=== PATIENT | male | born 1965 | race Caucasian/White ===

== ENCOUNTER 2022-02-10 13:08 | Emergency (ER) | payer OTHER, BC, SELFPAY ==
[2022-02-10 13:09] VITALS: BP 164/102; PULSE 67; RESP 14; TEMP 36.8; O2SAT 99; BMI 26.4
--- NOTE | 2022-02-10 13:31 | CT_ITS ---
STUDY: CT ABDOMEN AND PELVIS WITH CONTRAST REASON FOR EXAM: Male, 57 years old. abdominal pain RADIATION DOSAGE (If Supplied By Facility): CTDIvol = ( 17.60 ) mGy, DLP = ( 988.24 ) mGycm TECHNIQUE: Transaxial images were obtained from the dome of the diaphragm to the symphysis pubis without oral contrast. IV 100mL Isovue-300 was administered. Sagittal and coronal images were reconstructed. Individualized dose optimization techniques were used for this CT. COMPARISON: None. FINDINGS: The visualized lung bases are unremarkable. The visualized portions of the heart are within normal limits. Normal liver. Normal gallbladder and extrahepatic biliary system. Normal spleen. Normal pancreas. Normal bilateral adrenal glands. Normal right kidney. Normal left kidney. Normal visualized stomach. Normal small intestine. Normal colon. The appendix is visualized and appears normal. Normal abdominal aorta. Normal inferior vena cava. Normal retroperitoneum. Normal urinary bladder. Small left inguinal hernia with an incarcerated loop of sigmoid colon but without bowel obstruction. Mild levoscoliosis of the lumbar spine with degenerative disc disease. CT/Abdomen/Pelvis W IV Cont ONLY IMPRESSION: Small left inguinal hernia with incarcerated loop of sigmoid colon but without bowel obstruction. Electronically Signed: Yadiel Avilez MD at 15:31 EDT ,
--- NOTE | 2022-02-10 13:32 | EX.ED.DYSGE1 ---
HPI History of Present Illness Chief Complaint: Abd Pain Informant: patient Narrative Narrative: 57-year-old male presenting to the emergency department with left periumbilical abdominal pain. Patient states that he developed this discomfort yesterday morning. It has gotten worse throughout the night. He did not eat and drink anything today. He denies any nausea vomiting urinary or bowel changes. No reported fevers. Is never had this pain before. No personal history of colitis or diverticulosis. He notes a chronic inguinal hernia on the left for greater than 10 years. He recently started working out doing sit ups and push-ups and wonders if this could be muscular [facility] Medical History (Updated 02/10/22 @ 15:[address] Arnulfo Sandra DO) Dyslipidemia Hypertension Home Medications atorvastatin [Lipitor] 40 mg PO QHS 02/10/22 [History Last Taken Unknown] lisinopril 10 mg PO DAILY 02/10/22 [History Last Taken Unknown] Allergy/AdvReac Type Severity Reaction Status Date / Time No Known Allergies Allergy Verified 02/10/22 13:11 Social History (Updated 02/10/22 @ 13:[address] Arnulfo Sandra DO) current gender identity: male Smoking Status: Former smoker ROS ROS ED Constitutional Constitutional ED: Denies chills, fever(s) or weight loss Eyes Eyes: Denies change in vision or diplopia ENT ENT ED: Denies ear pain, rhinorrhea or sore throat Cardiovascular Cardiovascular: Denies chest pain, orthopnea, palpitations or racing heartbeat Respiratory/Chest Respiratory/Chest: Denies cough, dyspnea or orthopnea Gastrointestinal Gastrointestinal: Reports abdominal pain; Denies constipation, diarrhea, nausea or vomiting Genitourinary Genitourinary ED: Denies dysuria, hematuria or urinary frequency Musculoskeletal Musculoskeletal: Denies arthralgias or myalgias Integumentary Denies abscess or rash Neurologic Neurologic: Denies headache(s) or weakness Psychiatric Psychiatric: Denies anxiety, depression, suicidal ideation or suicidal thoughts Endocrine Endocrinology: Denies polydipsia, polyphagia or polyuria Allergic/Immunologic Allergic/Immunologic ED: Denies mouth swelling, tongue swelling or urticaria EXAM Physical Exam Const Vital Signs: 02/10/22 13:09 Temperature 98.2 F Temperature Source Temporal Pulse Rate 67 Respiratory Rate 14 Blood Pressure 164/102 H Blood Pressure Mean 122 Pulse Ox 99 Oxygen Delivery Method Room Air Positive well nourished and well developed General Appearance ED: well developed HEENT Reports normocephalic, head/scalp atraumatic, TM's clear and moist mucous membranes Negative for trauma Tympanic Membrane ED: Yes TM's clear Eyes PERRL and EOMs intact bilaterally Neck no lymphadenopathy, supple and no JVD Resp normal respiratory effort and clear to auscultation bilaterally Cardio regular rate, regular rhythm and no murmurs GI GI Narrative: There is a left inguinal hernia that is not tender or swollen. Palpation: soft and tender; Negative for guarding or rebound tenderness present Back/Spine no CVA tenderness and normal ROM Extremity normal to inspection General Extremety ED: Negative for edema General Extremity: Negative for edema Neuro oriented x3 and CN's II-XII intact bilaterally Sensorium / Orientation: alert Motor Exam: strength 5/5 throughout Psych mental status grossly normal Mood & Affect: Negative for depressed or tearful Skin no rashes or lesions noted and no wounds MDM MDM MDM Narrative Medical decision making narrative: Is a blood work showed a white count of 5.4. CMP was normal. Urinalysis normal. CT of the abdomen pelvis is consistent with a left inguinal hernia with a loop of sigmoid colon in it. This area is not tender or swollen or red. The area on the patient that is causing pain is cephalad to this and more of the left upper quadrant. At this point I have a clear etiology for the patient's pain. I do not think he needs an emergent inguinal surgery. I will refer him to general surgery. And encouraged him to repeat an examination in 24 hours if he still is having discomfort. Lab Data Attestation: I reviewed the patient's lab results. Labs: Laboratory Results - last 24 hr 02/10/22 02/10/22 02/10/22 13:45 13:45 14:55 WBC 5.4 RBC 4.32 L Hgb 13.7 Hct 39.2 L MCV 90.7 MCH 31.7 MCHC 34.9 RDW Std Deviation 40.7 RDW Coeff of Prieto 12.2 Plt Count 234 MPV 9.5 Immature Gran % (Auto) 0.200 Neut % (Auto) 61.8 Lymph % (Auto) 26.4 Stewart % (Auto) 9.4 Eos % (Auto) 1.8 Baso % (Auto) 0.4 Absolute Neuts (auto) 3.3 Absolute Lymphs (auto) 1.43 Nucleated RBC % 0 Sodium 140 Potassium 4.0 Chloride 107 Carbon Dioxide 28.0 Anion Gap 5 BUN 13 Creatinine 0.77 Estim Creat Clear Calc 111.37 Est GFR (MDRD) Af Amer 133 Est GFR (MDRD) Non-Af 110 BUN/Creatinine Ratio 16.8 Glucose 94 Calcium 8.8 Total Bilirubin 0.50 AST 13 L ALT 32 Alkaline Phosphatase 89 Total Protein 7.2 Albumin 3.8 Globulin 3.4 Albumin/Globulin Ratio 1.1 Urine Color Yellow Urine Clarity Clear Urine pH 6.5 Ur Specific [place] 1.010 Urine Protein Negative Urine Glucose (UA) Normal Urine Ketones Negative Urine Occult Blood 10 H Urine Nitrite Negative Urine Bilirubin Negative Urine Urobilinogen Normal Ur Leukocyte Esterase Negative Urine RBC 0 SEEN Urine WBC 0 SEEN Ur Squamous Epith Cells 0 SEEN Urine Bacteria 0 SEEN Urine Mucus 0 SEEN Radiography Diagnostic Testing: Clinical Impression(s) from Imaging Studies Abdomen/Pelvis CT 02/10/22 13:31 IMPRESSION: Small left inguinal hernia with incarcerated loop of sigmoid colon but without bowel obstruction. Electronically Signed: Yadiel Avilez MD at 15:31 EDT , Discharge Plan Triage Chief Complaint: Abd Pain ED Provider: Arnulfo Sandra Dx/Rx/DC Orders Clinical Impression: Abdominal pain, Inguinal hernia Instructions: What Is a Hernia?, ED Abdominal Pain Unkn Cause Male... Prescriptions: No Action atorvastatin [Lipitor] 40 mg Tablet 40 mg PO QHS RF: 0 lisinopril 10 mg Tablet 10 mg PO DAILY RF: 0 Primary Care Provider: Care Physician,No Primary Referrals: Arnulfo Thomas MD [STAFF PHYSICIAN] - As soon as possible (for surgery) Care Physician,No Primary [Primary Care Provider] - Disposition Disposition: Home, Self Care
[2022-02-10 13:55] LABS: Absolute Lymphocyte Count 1.43 X10^3/uL (0.83-4.51); Absolute Neutrophil Count 3.3 X10^3/uL (2.0-7.7); Basophil# 0.02 X10^3/uL; Basophil% 0.4 % (0-1); Eosinophils% 1.8 % (0-5); Hematocrit 39.2 % (40-54); Hemoglobin 13.7 g/dL (13.0-16.5); Lymphocyte # 1.43 X10^3/ul (0.83-4.51); Lymphocyte % 26.4 % (19-41); Mean Corp Hgb Conc 34.9 g/dL (32-36); Mean Corpuscular Hgb 31.7 pg (27.0-32.0); Mean Corpuscular Volume 90.7 fL (80-94); Mean Platelet Vol. 9.5 fl (6.2-12.0); Monocyte# 0.51 X10^3/uL; Monocyte% 9.4 % (0-10); NRBC Flagged by Analyzer 0 % (0-5); Neutrophil # 3.34 X10^3/uL (2.7-7.7); Neutrophil % 61.8 % (47-70); Platelet Count 234 K/mm3 (150-450); RBC Distribution Width CV 12.2 % (11.6-14.6); RBC Distribution Width SD 40.7 fl (35.1-43.9); Red Blood Count 4.32 M/mm3 (4.6-6.2); White Blood Count 5.4 K/mm3 (4.4-11.0)
[2022-02-10 14:11] LABS: ALB/GLOB Ratio 1.1 RATIO (0.9-2.4); AST(SGOT) 13 U/L (15-37); Alanine Aminotransfer ALT/SGPT 32 U/L (16-61); Albumin, Serum 3.8 g/dL (3.2-5.0); Alkaline Phosphatase 89 U/L (45-117); Anion Gap 5 (5-15); BUN 13 mg/dL (7-18); BUN/Creat Ratio 16.8 RATIO (10-20); Calcium,Total 8.8 mg/dL (8.5-10.1); Chloride 107 mmol/L (98-107); Creatinine, Serum 0.77 mg/dL (0.70-1.30); EST Glomerular Filtration Rate 110 mL/min (>60); Est Glom Filt Rate - Afr Amer 133 mL/min (>60); Estimated Creatinine Clearance 111.37 ml/min; Globulin 3.4 g/dL (2.2-4.2); Glucose 94 mg/dL (74-106); Protein, Total 7.2 g/dL (6.4-8.2); Sodium Level 140 mmol/L (136-145)
[2022-02-10 15:00] LABS: Bacteria 0 SEEN /hpf (None Seen); Mucous, Urine 0 SEEN /hpf (<or=2+); Red Blood Cells-Urine 0 SEEN /hpf (0-5); Squamous Epithelial Cells - UA 0 SEEN /hpf (0-5); White Blood Cells 0 SEEN /hpf (0-5)
[2022-02-10 15:12] LABS: Color, Urine Yellow (Yellow); Glucose, Dipstick Normal (Normal); Ketone-Dipstick Negative (Negative); Leukocyte Esterase-Dipstick Negative /ul (Negative); Nitrite-Dipstick Negative (Negative); Occult Blood-Urine 10 /ul (Negative); Protein-Dipstick Negative (Negative); Urine Bilirubin Dipstick Negative (Negative); Urine Clarity Clear (Clear); Urine Urobilinogen Normal (Normal); Urine pH 6.5 (5.0 - 8.0)
== END 2022-02-10 15:57 | disposition home or self-care (01) ==
PROVIDERS: Emergency Provider Emergency Medicine; Visit Provider Emergency Medicine
DX: K40.90 Unilateral inguinal hernia, without obstruction or gangrene, not specified as recurrent (principal); I10 Essential (primary) hypertension; E78.5 Hyperlipidemia, unspecified; Z87.891 Personal history of nicotine dependence; Z79.899 Other long term (current) drug therapy
CPT/HCPCS: 74177; 80053; 81001; 85025; 99283; Q9967; A4216

== ENCOUNTER 2022-03-08 10:26 | Day surgery (SDC) | payer BC, SELFPAY ==
--- NOTE | 2022-03-04 09:08 | EKG12_ITS ---
Test Reason : PREOP Blood Pressure : / mmHG Vent. Rate : 064 BPM Atrial Rate : 064 BPM P-R Int : 154 ms QRS Dur : 094 ms QT Int : 394 ms P-R-T Axes : 049 021 036 degrees QTc Int : 406 ms Normal sinus rhythm Normal ECG Confirmed by OMAIRA VALENTINE, RUI ([id number]), photo editor ANILA RAMIREZ ([id number]) on 03/04/2022 12:56:44 PM Referred By: Arnulfo Thomas Confirmed By:RUI CASTANO MD
[2022-03-08] VITALS (7 sets, daily range): BP systolic 103–133; BP diastolic 62–77; PULSE 63–75; RESP 16; TEMP 36.3–36.6; O2SAT 93–100; BMI 26.2
[2022-03-08] MEDS: Lactated Ringers 1,000 ML 15 ML IV ×2 (11:05→14:00)
[2022-03-08] MEDS: Cefazolin 2 GM in 0.9% Normal Saline 100 ML IV (12:12)
[2022-03-08] MEDS: Bupivacaine Mpf 0.5% 30 ML VIAL (12:34)
--- NOTE | 2022-03-08 14:01 | OP.PCM_ITS ---
Problems Associated Problem List Diagnoses (1) Bilateral inguinal hernia without obstruction or gangrene: Report of Operation Date of Procedure: 03/08/22 Pre-Operative Diagnosis: Bilateral inguinal hernias Post-Operative Diagnosis: Same Surgery/Procedure Performed:: Robotically assisted laparoscopic bilateral inguinal hernia repairs with mesh Surgeon: Arnulfo Thomas television station manager: Sandie Orosco Type of Anesthesia: General Anesthesiologist: Jesus Corona Estimated Blood Loss (mL): < 25 cc Description of Procedure: Patient was brought into the operating room. Placed in the supine position. Under excellent general anesthetic Ribeiro catheter was placed the abdomen was sterilely prepped and draped in the usual fashion. Local was injected supraumbilically. Dissection was carried down to the fascia. The fascia was grasped with [place]. Varies needle was placed inside the abdomen. #8 trocar was placed without difficulty. It was flank by 2 #8 trochars placed under direct visualization. We made sure that the black line was in the muscular tissue. Patient was placed in the headdown position robot was brought in and appropriately docked. I placed a grasper in my left #1 hand and a pair of scissors. I started on the left side this was a larger direct inguinal hernia I scored the peritoneum dissected down coming down to the pubic tubercle and then bringing the direct inguinal hernia back into the operating field in the preperitoneal space. Identified Frantz's ligament then I dissected the cord and vessel structures free and dissected further laterally. I then went to the right side in a similar fashion scored the peritoneum dissected this free down to the pubic tubercle connecting myself to the left side once again bringing in a direct inguinal hernia this 1 was not quite as large going further laterally taking the cord and vessel structures and dissecting them free from the peritoneum and then dissecting further laterally. I had good hemostasis. I fashioned 2 large ProGrip mesh into the wound. They laid completely flat covering the defects both on the right side completely with significant overlap. Once this was complete I then reperitonealized the area with a 3 OV lock bringing both needles back through the #1 port without difficulty once I was satisfied everything was covered completely and I had good epistasis the trochars were removed under direct visualization good with stasis was noted skin incisions were closed with subcuticular stitches of 4-0 Monocryl. Steri-Strips were applied sterile dressings were applied and the patient tolerated the procedure well. Admit VTE Documentation VTE Present on Admission: No VTE Mechan Device Prophylaxis: SCD's VTE Pharm Prophylaxis ordered?: No Reason prophylaxis not ordered:: Treatment Not Indicated
--- NOTE | 2022-03-08 14:09 | DCINST_ITS ---
Discharge Instructions Procedure General Surgery Diet Discharge Diet: Light diet - advance as tolerated (If you have questions about your diet instructions, please talk to your doctor.) Activity Discharge Activity: May Not Drive (for 1 week or while taking narcotic pain medicine.) May shower in (days): 1 Lifting Restrictions: 10 pounds Dressing / Incision Call your doctor if your incision/area has: Continuous Slow Oozing, Sudden Increased Bleeding, Increased Pain/ Swelling, Increased Redness and Foul Smelling Discharge Call your doctor if you observe: Fever of 101 or Higher Suture Line Care: Avoid Pulling/Pushing and Avoid Pinching/Bending Additional Dressing/Incision Instructions:: Change or remove dressing in 4 days. Leave steri-strips in place for 1 week. Follow Up Care Please Follow Up With: Ginny Madrigal PA-C When: Call office to schedule an appointment to be seen in about 10 days. Test Results: Test results from this visit will be discussed in further detail at your follow-up appointment, if applicable. Discharge Plan Admission Attending Provider: Arnulfo Thomas Primary Care Provider: Care Physician,Chiquis Primary Discharge Orders/Prescriptions Prescriptions: New oxycodone-acetaminophen [Percocet] 5-325 mg tablet 1 tab PO Q4H PRN (Reason: pain) 5 Days Qty: 20 RF: 0 No Action atorvastatin [Lipitor] 40 mg Tablet 40 mg PO QHS RF: 0 lisinopril 10 mg Tablet 10 mg PO DAILY RF: 0 ibuprofen 400 mg Tablet 400 mg PO Q6H PRN (Reason: Pain) RF: 0 Referrals / Follow Up: Care Physician,No Primary [Primary Care Provider] - Ginny Madrigal PA-C [PHYSICIAN CANINE ENFORCEMENT OFFICER] - Disposition Disposition (needs filled in before D/C Order can be placed): Home, Self Care
--- NOTE | 2022-03-08 14:12 | PCM.HP.BLA ---
History and Physical Date of Admission: 03/08/22 HISTORY AND PHYSICAL ? [place] 1965 ? ? REFERRING PHYSICIAN: Self ? CHIEF COMPLAINT: Consult ? HPI: The patient is a 57 year old male with a complaint of left upper quadrant abdominal pain. Patient was seen at [facility]'s emergency department on 02/10/2022. He had developed increasing left upper quadrant abdominal pain and he has not been really able to have much in the way of bowel movements since then as well. He had a CAT scan of the abdomen and pelvis which did not show any obvious signs of colon or intra-abdominal pathology other than a left inguinal hernia. This left inguinal hernia has been present for over 10 years and is always been easily reducible. He states that he has started working out and doing sit ups and push-ups and was wondering if this could be part of the problem as well. ? . ? ? ? PAST MEDICAL HISTORY PAST MEDICAL HISTORY Diagnosis Date ? Hypertension ? ? ? PAST SURGICAL HISTORY PAST SURGICAL HISTORY Procedure Laterality Date ? COLONOSCOPY ? 1964 ? PAST SURGICAL HISTORY OF ? 2010 ? discectomy ? ? CURRENT MEDICATIONS Current Outpatient Medications Medication Sig ? lisinopril (ZESTRIL, PRINIVIL) 10 mg tablet Take by mouth. ? atorvastatin (LIPITOR) 40 mg tablet Take by mouth. ? ergocalciferol, vitamin D2, (VITAMIN D2 ORAL) Take by mouth. ? mylexwla-cbctltgwjem-bogc cb25 116-100 mg cap Take by mouth. ? sertraline (ZOLOFT) 50 mg tablet Take 1 tablet by mouth once daily. ? No current facility-administered medications for this visit. ? ? ALLERGIES: Patient has no known allergies. ? PERSONAL HISTORY: SOCIAL HISTORY Social History ? Tobacco Use ? Smoking status: Former Smoker ? ? Quit date: 2006 ? ? Years since quittin.3 ? Smokeless tobacco: Never Used ? Tobacco comment: more social at the time Substance Use Topics ? Alcohol use: Yes ? ? Comment: beer at dinner time ? Drug use: Never ? FAMILY HISTORY: FAMILY HISTORY FAMILY HISTORY Problem Relation Age of Onset ? Heart Father ? ? Diabetes Father ? ? Diabetes Brother ? ? Emphysema Mother ? ? Hypertension Brother ? ? ? REVIEW OF SYSTEMS: ?General:???The patient denies?fatigue, denies?weight loss, denies?weight gain, denies?feeling hot, and denies?feelings of cold. ?Eyes: ?The patient denies?glaucoma, denies?eye injury/surgery, does not wear?glasses or contacts. ?Ear/Nose/Throat: ?The patient denies?allergies, denies?hayfever, denies?ear infections, and denies?bloody noses. ?Cardiovascular: ?The patient denies?chest pain, denies?heart disease, NOTES?high blood pressure,denies?cardiac stent, denies?prior heart attack, denies?irregular heart beat, NOTES?high cholesterol, ?denies?poor circulation, denies?heart failure, other cardiac issues, denies?claudication, denies?cold feet, denies?peripheral arterial stent. ?Respiratory: ?The patient denies?tuberculosis, denies?pneumonia, denies?frequent cough, denies?pulmonary embolism, denies?shortness of breath, and denies?coughing up blood. ?Gastrointestinal: ?The patient denies?difficulty swallowing, denies?acid reflux, denies?ulcers, denies?vomiting, denies?jaundice/hepatitis, denies?gallbladder problems, denies?black or tarry stools, denies?hemorrhoids, denies?bleeding from rectum, denies?diverticulitis, denies?constipation, denies?diarrhea, denies?loss of stool control, and NOTES?hernias. ?Kidney/Bladder: ?The patient denies?kidney stones, denies?urine infections, and denies?bloody urine. ?Skin: ?The patient denies?a history of skin cancer, denies?bleeding/changing moles, and denies?a history of skin rash. ?Neurologic: ?The patient denies?a history of epilepsy/convulsions, denies?headaches, denies?head/spinal injuries, and denies?stroke/TIA. ?Psychiatric: ?The patient denies?psychiatric medications, denies?depression, and denies?voices, denies?substance abuse. ?Endocrine: ?The patient denies?thyroid disorders, denies?diabetes, and denies?hormonal problems. ?Hematologic: ?The patient denies?a history of bruising, denies?bleeding, and denies?anemia, denies?blood clots. ?Infections: ?The patient denies?a history of measles and mumps, denies?rheumatic fever, and denies?sexually transmitted diseases. ?Musculoskeletal: ?The patient denies?back pain/injury, denies?back problems, denies?sciatica, denies?knee/foot trouble, denies?arthritis, or denies?gout. ? ? When was patient's last Mammogram screening??N/A ? ?Last Colonoscopy: ?never? ? PHYSICAL EXAMINATION: ? General: The patient is 57 year old male, well nourished, well hydrated in no acute distress. The patient is oriented to time, place, and person. ? VITALS: Blood pressure 116/80, pulse 91, temperature 36.8 ?C (98.2 ?F), temperature source Temporal, height 180.3 cm (5' 11), weight 86.2 kg (190 lb), SpO2 97 %. ? HEENT: Normal cephalic, ataumatic, pupils are equally round, sclera are anicteric, mucous membranes are moist, oropharynx is clear. Neck has no masses, asymmetry or lymphadenopathy. Thyroid is unremarkable. ? Respiratory: Clear to auscultation and percussion. Normal respiratory excursion and pattern. ? Cardiac: Examination is regular rate and rhythm. ? Abdominal exam: Soft, nontender, with no palpable masses. No hepatosplenomegaly. Patient has a large reducible left inguinal hernia as well as a small reducible right inguinal hernia. Rectal exam: exam deferred ? Extremities: no clubbing, cyanosis or edema. No adenopathy. ? Other: ? ? LABORATORY VALUES: As Noted ? RADIOLOGIC STUDIES: As Noted ? Assessment IMPRESSION: Non-recurrent bilateral inguinal hernia without obstruction or gangrene (primary encounter diagnosis) Constipation, unspecified constipation type ? PLAN: Present time I want him to get some [id number] stool softeners and use some MiraLAX to see if his constipation will get back into normal alignment. Once this is completed then I will see him back when he knows within 30 days that he would like to have his robotically assisted laparoscopic bilateral inguinal hernia repair. ? Diagnoses: (K40.20) Non-recurrent bilateral inguinal hernia without obstruction or gangrene (primary encounter diagnosis) (K59.00) Constipation, unspecified constipation type ? ? ? Return to Clinic: The patient is instructed to follow-up with me as needed. ? Arnulfo Thomas III, MD I have re-examined the patient. There are no clinical changes since date of exam.
== END 2022-03-08 18:06 | disposition home or self-care (01) ==
LOC: SDC 10:27 → AC 10:28
PROVIDERS: Referring Provider Surgery; Visit Provider Surgery
PROC: (CPT 49650; principal; 2022-03-08 11:40)
DX: K40.20 Bilateral inguinal hernia, without obstruction or gangrene, not specified as recurrent (principal); I10 Essential (primary) hypertension; Z87.891 Personal history of nicotine dependence; Z79.899 Other long term (current) drug therapy; K59.00 Constipation, unspecified; E78.5 Hyperlipidemia, unspecified; E78.00 Pure hypercholesterolemia, unspecified
CPT/HCPCS: 49650; S2900; 00840; 93005; J7120; J2405